=== PATIENT | male | born 1980 | race Caucasian/White ===

== ENCOUNTER 2018-01-16 09:14 | Emergency (ER) | payer OTHER ==
[2018-01-16 09:21] VITALS: BP 137/79
[2018-01-16] MEDS ORDERED: PROPARACAINE/FLUORESCEIN SOD 5 ML OPHT.BTL OP ONE (09:21)
[2018-01-16] MEDS ORDERED: PROPARACAINE 0.5% 15 ML OPHT DROP ONE (09:23)
[2018-01-16] MEDS ORDERED: PROPARACAINE 0.5% 15 ML OPHT DROP OP ONE (09:25)
--- NOTE | 2018-01-16 09:52 | EDPHY ---
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 He felt something in his eye despite using protective eyewear and tried to rub it out. He did wash out the eye after work yesterday and removed his contact lens. He states today it is worse, blurry vision, painful eye with foreign body sensation. He has not put his contact lenses back in. He denies any fevers or chills. There is no discharge to the eye this morning. He states his tetanus vaccination is up-to-date. REVIEW OF SYSTEMS: Negative except per HPI. General Appearance: Alert, no distress. Eyes: Pupils equal and round no icterus. Left eye normal. Right eye hyperemic , conjunctiva edematous. Inverted eyelid no foreign body noted. Slit lamp exam shows obvious corneal ulcer with punctate lesions surrounding area. Corneal ulcer located centrally at approximately 11:00 position. Respiratory: No respiratory distress Neurological: Awake, alert, no focal deficits. Skin: Warm and dry, no rashes. Musculoskeletal: Neck is supple nontender. Extremities are symmetrical, full range of motion, no edema. Psychiatric: Patient is oriented X 3, there is no agitation. 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 Nonsmoker, occasional alcohol. Smoking Status: Never smoked Constitutional: Initial Vital Signs Temperature (C) 36.6 C 01/16/18 09:16 Heart Rate 69 01/16/18 09:16 Respiratory Rate 18 01/16/18 09:16 Blood Pressure 137/79 H 01/16/18 09:16 O2 Sat (%) 96 01/16/18 09:16 O2 Delivery Mode Room Air Allergies/Adverse Reactions: No Known Allergies Allergy (Unverified 01/16/18 09:21) Home Medications: Medication Instructions Recorded NK [No Known Home Meds] 01/16/18 Medical Decision Making ED Course/Re-evaluation: 9:45 [address] White, ophthalmology, Dr. White was asked that patient be sent to Ophthalmology Clinic now. Differential Diagnosis: Differential diagnosis includes but not limited to globe rupture, corneal abrasion, corneal ulcer, iritis. On my evaluation corneal ulcer seen and discussed with Dr. White, ophthalmology. He requested patient be sent to the ophthalmology clinic now and that was done. No other medications besides proparacaine given in the emergency department. Tetanus vaccination up-to- date. 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 - Data Points Medications Given: Discontinued Medications Proparacaine HCl (Alcaine 0.5%) 1 drops OP EDNOW ONE Stop: 01/16/18 09:26 Last Admin: 01/16/18 09:41 Dose: 1 drop Proparacaine HCl/Fluorescein Sodium (Flucaine) 2 drops OP EDNOW ONE Stop: 01/16/18 09:22 Last Admin: 01/16/18 09:44 Dose: Not Given Departure - Departure Disposition: Home, Routine, Self-Care Clinical Impression: Corneal ulcer of right eye Condition: Fair Instructions: Corneal Ulcer (ED) Additional Instructions: Go to Dr. White' office at [address] [place] [address] [address] now. This is in the main [facility]. Referrals: Marc White MD [Medical Doctor] - As per Instructions
== END 2018-01-16 09:56 | disposition home or self-care (01) ==
LOC: CED 09:14
DX: H16.001 Unspecified corneal ulcer, right eye (principal)